=== PATIENT | male | born 1930 | race Two or more races ===

== ENCOUNTER 2017-08-22 16:25 | Emergency (ER) | payer MEDICARE ==
[~2017-08-22] VITALS: Ht 182.9 cm; Wt 60.4 kg
[2017-08-22] MEDS ORDERED: DILT90CA PO (16:49)
[2017-08-22] MEDS ORDERED: TAMS0.4C32 PO (16:49)
[2017-08-22] MEDS ORDERED: DONE5TAB5 PO (16:49)
[2017-08-22] MEDS ORDERED: WARF2.5 PO (16:49)
[2017-08-22] MEDS ORDERED: ATOR40TA28 PO (16:49)
[2017-08-22] MEDS ORDERED: CARB-101 PO (16:49)
[2017-08-22] MEDS ORDERED: ASCO500 PO (16:49)
[2017-08-22] MEDS ORDERED: FINA5TAB41 PO (16:49)
[2017-08-22] MEDS ORDERED: VITAD1000 PO (16:49)
[2017-08-22] MEDS ORDERED: MULT-1203 PO (16:49)
[2017-08-22 16:53] LABS: GLUCOSE,POINT OF CARE 122 MG/DL (70-110)
[2017-08-22 17:03] LABS: BASOPHILS % (AUTO) 0.2 % (0.0-2.0); EOSINOPHILS % (AUTO) 0 % (1.0-6.0); HEMATOCRIT 39.3 % (41-53); HEMOGLOBIN 13.1 g/dL (13.5-17.5); LYMPHOCYTES # (AUTO) 0.2 K/uL (1.0-4.8); LYMPHOCYTES % (AUTO) 0.9 % (22.0-44.0); MEAN CORPUSCULAR HEMOGLOBIN 29.5 pg (26.0-34.0); MEAN CORPUSCULAR HGB CONC 33.3 G/dL (31.0-37.0); MEAN CORPUSCULAR VOLUME 88 fL (80-100); MONOCYTES # (AUTO) 0.7 K/uL (0.1-1.0); MONOCYTES % (AUTO) 2.6 % (2.0-9.0); NEUTROPHILS # (AUTO) 26.4 K/uL (1.8-7.7); PLATELET COUNT (AUTO) 101 K/uL (150-450); RED BLOOD CELL COUNT(AUTO) 4.44 MIL/uL (4.50-5.90); RED CELL DISTRIBUTION WIDTH 14.8 % (11.5-14.5)
[2017-08-22 17:05] LABS: NEUTROPHILS % (AUTO) 96.3 % (40.0-70.0)
[2017-08-22] MEDS ORDERED: IPRATROPIUM BROMIDE 0.5 MG/2.5 ML NEB SOLUTION NEB ONE (18:00)
[2017-08-22] MEDS ORDERED: ALBUTEROL SULFATE 2.5 MG/0.5 ML NEB SOLUTION NEB ONE (18:00)
[2017-08-22 18:03] LABS: POTASSIUM 6.4 mmol/L (3.5-5.1)
[2017-08-22 18:04] LABS: CREATININE 11.93 mg/dL (0.60-1.30)
[2017-08-22 18:05] LABS: ALBUMIN 2.1 g/dL (3.4-5.0); BILIRUBIN,TOTAL 0.7 mg/dL (0.1-1.0); CALCIUM, TOTAL 9.6 mg/dL (8.8-10.5); TOTAL PROTEIN, SERUM 6.2 g/dL (6.4-8.2)
[2017-08-22] MEDS ORDERED: ALBUTEROL SULFATE 5 MG/ML 20 ML NEB SOLN [BULK] NEB ONE (18:05)
[2017-08-22] MEDS ORDERED: 0.9% SODIUM CHLORIDE 15 ML NEB SOLUTION NEB ONE (18:20)
[2017-08-22] MEDS ORDERED: INSULIN REGULAR, HUMAN 100 UNITS/ML IVP ONE (18:45)
[2017-08-22] MEDS ORDERED: SODIUM POLYSTYRENE SULFONATE 15 GM/60 ML SUSPENSION BOTTLE PO ONE (18:45)
[2017-08-22] MEDS ORDERED: DEXTROSE 50%-WATER 25 GM/50 ML SYRINGE IVP ONE (18:45)
[2017-08-22] MEDS ORDERED: CALCIUM GLUCONATE 100 MG/ML 10 ML IVP ONE (18:45)
[2017-08-22] MEDS ORDERED: SODIUM CHLORIDE 0.9% 1,000 ML IV ONE (19:00)
[2017-08-22] MEDS ORDERED: MORPHINE SULFATE 4 MG/ML SYRINGE IVP ONE (19:00)
[2017-08-22] MEDS ORDERED: ONDANSETRON HCL 4 MG/2 ML VIAL IVP ONE (19:00)
[2017-08-22 19:56] VITALS: BP 110/70
== END 2017-08-22 20:45 | disposition home or self-care (01) ==
LOC: EMS 16:28
DX: N17.9 Acute kidney failure, unspecified (principal); E87.5 Hyperkalemia; D72.829 Elevated white blood cell count, unspecified; F17.210 Nicotine dependence, cigarettes, uncomplicated; I48.91 Unspecified atrial fibrillation; E78.00 Pure hypercholesterolemia, unspecified; Z51.5 Encounter for palliative care; Z86.73 Personal history of transient ischemic attack (TIA), and cerebral infarction without residual deficits
CPT/HCPCS: 36415; 71045; 80053; 82962; 83605; 83880; 84484; 85025; 87040; 87077; 87186; 93005; 94644; 96374; 96375; 99285; J0610; J1815; J2270; J2405; J7030; 96361